=== PATIENT | male | born 1975 | race Caucasian/White ===

== ENCOUNTER 2020-11-04 09:51 | Emergency (ER) | payer BC, OTHER ==
[~2020-11-04 09:51] MED LIST: AMOXICILLIN500 MG PO; BENTYL 20MG TAB20 MG PO; CELEBREX100 MG PO; CIPRO HC OTIC S10 ML EARRT; CIPRODEX OTIC7.5 ML EARRT; CORTISPORIN OTI10 M1 EARRT; IBUPROFEN600 MG PO; IBUPROFEN800 MG PO; MIRALAX17 GM PO; ONDANSETRON ODT4 MG SL; PREDNISONE 20 M20 MG GT; PROAIR HFA8.5 GM INH; PROVENTIL HFA6.7 GM INH; TAMIFLU75 MG PO; TESSALON PERLE100 MG PO; VIBRAMYCIN100 MG PO; ZITHROMAX250 MG PO; ZOFRAN ODT 4 MG4 MG PO; ZOFRAN4 MG PO; ZYRTEC-D TABLE1 EACH PO
[2020-11-04 10:39] LABS: HEMOGLOBIN 15.1 gm/dl (14.0-17.5); RED BLOOD COUNT 4.87 M/UL (4.20-5.50); WHITE BLOOD COUNT 7.7 K/UL (4.5-11.0)
[2020-11-04 11:10] LABS: BUN/CREATININE RATIO 32 (0-10)
[2021-05-05] MEDS ORDERED: FLOMAX 0.4 MG0.4 MG PO (11:14)
[2021-05-05] MEDS ORDERED: ASPIRIN EC81 MG PO (11:14)
== END 2020-11-04 14:09 | disposition home or self-care (01) ==
LOC: ER1 09:51
PROVIDERS: Physician Assistant
DX: J06.9 Acute upper respiratory infection, unspecified (principal); R10.9 Unspecified abdominal pain; R30.0 Dysuria; F17.200 Nicotine dependence, unspecified, uncomplicated; Z20.822 Contact with and (suspected) exposure to COVID-19
CPT/HCPCS: 71045; 80053; 81001; 85025; 99285; U0003

== ENCOUNTER 2020-12-19 14:06 | Emergency (ER) | payer BC, OTHER ==
[2020-12-19 16:45] LABS: HEMOGLOBIN 15.7 gm/dl (14.0-17.5); RED BLOOD COUNT 4.9 M/UL (4.20-5.50)
[2020-12-19 17:03] LABS: BUN/CREATININE RATIO 20 (0-10)
[2021-05-05] MEDS ORDERED: FLOMAX 0.4 MG0.4 MG PO (11:14)
[2021-05-05] MEDS ORDERED: ASPIRIN EC81 MG PO (11:14)
== END 2020-12-19 18:19 | disposition home or self-care (01) ==
LOC: ER1 14:06
PROVIDERS: Emergency Medicine
DX: N20.0 Calculus of kidney (principal); I10 Essential (primary) hypertension; F17.200 Nicotine dependence, unspecified, uncomplicated; Z87.442 Personal history of urinary calculi
CPT/HCPCS: 80053; 81001; 83690; 85025; 96374; 96375; 99284; J2270; J2405; J7030

== ENCOUNTER 2020-12-23 05:07 | Emergency (ER) | payer BC, OTHER ==
[2020-12-23 05:52] LABS: HEMOGLOBIN 15.3 gm/dl (14.0-17.5); RED BLOOD COUNT 4.8 M/UL (4.20-5.50); WHITE BLOOD COUNT 9.7 K/UL (4.5-11.0)
[2020-12-23 06:11] LABS: BUN/CREATININE RATIO 24 (0-10)
[2020-12-23] MEDS ORDERED: OMNICEF 300 MG300 MG PO (09:34)
[2021-05-05] MEDS ORDERED: FLOMAX 0.4 MG0.4 MG PO (11:14)
[2021-05-05] MEDS ORDERED: ASPIRIN EC81 MG PO (11:14)
== END 2020-12-23 09:41 | disposition home or self-care (01) ==
LOC: ER1 05:07
PROVIDERS: Family Medicine
DX: N20.0 Calculus of kidney (principal); N19 Unspecified kidney failure; F17.210 Nicotine dependence, cigarettes, uncomplicated
CPT/HCPCS: 36415; 80053; 81001; 83690; 85025; 96374; 96375; 99284; J1885; J2405

== ENCOUNTER 2021-01-19 03:52 | Emergency (ER) | payer OTHER ==
[~2021-01-19 03:52] MED LIST changes: +OMNICEF 300 MG300 MG PO
[2021-01-19 04:41] LABS: HEMOGLOBIN 15.2 gm/dl (14.0-17.5); RED BLOOD COUNT 4.86 M/UL (4.20-5.50); WHITE BLOOD COUNT 10.6 K/UL (4.5-11.0)
[2021-01-19 05:00] LABS: BUN/CREATININE RATIO 14 (0-10)
[2021-01-19] MEDS ORDERED: VIBRAMYCIN100 MG PO (08:03)
[2021-01-21 21:11] LABS: CHLAMYDIA TRACHOMATIS, NAA Negative (Negative); NEISSERIA GONORRHOEAE, NAA Negative (Negative)
[2021-05-05] MEDS ORDERED: ASPIRIN EC81 MG PO (11:14)
[2021-05-05] MEDS ORDERED: FLOMAX 0.4 MG0.4 MG PO (11:14)
== END 2021-01-19 09:25 | disposition home or self-care (01) ==
LOC: ER1 03:52
PROVIDERS: Emergency Medicine
DX: N45.1 Epididymitis (principal); F17.210 Nicotine dependence, cigarettes, uncomplicated; Z87.442 Personal history of urinary calculi
CPT/HCPCS: 76870; 80053; 80307; 81001; 83690; 85025; 96365; 96375; 99284; J0696; J2270; J2405

== ENCOUNTER 2021-01-22 21:07 | Emergency (ER) | payer OTHER ==
[2021-05-05] MEDS ORDERED: ASPIRIN EC81 MG PO (11:14)
[2021-05-05] MEDS ORDERED: FLOMAX 0.4 MG0.4 MG PO (11:14)
== END 2021-01-22 23:32 | disposition left against medical advice (07) ==
LOC: ER1 21:07
PROVIDERS: Nurse Practitioner
DX: Z53.21 Procedure and treatment not carried out due to patient leaving prior to being seen by health care provider (principal)
CPT/HCPCS: 80307; 81001; 87086

== ENCOUNTER 2021-01-28 13:43 | Emergency (ER) | payer OTHER ==
[2021-01-28 14:31] LABS: HEMOGLOBIN 15.8 gm/dl (14.0-17.5); RED BLOOD COUNT 5.06 M/UL (4.20-5.50); WHITE BLOOD COUNT 10.9 K/UL (4.5-11.0)
[2021-01-28 15:03] LABS: BUN/CREATININE RATIO 16 (0-10)
[2021-01-28] MEDS ORDERED: LACTULOSE20 GM/30 M PO (16:04)
[2021-05-05] MEDS ORDERED: ASPIRIN EC81 MG PO (11:14)
[2021-05-05] MEDS ORDERED: FLOMAX 0.4 MG0.4 MG PO (11:14)
== END 2021-01-28 16:32 | disposition home or self-care (01) ==
LOC: ER1 13:43
PROVIDERS: Family Medicine
DX: N50.811 Right testicular pain (principal); N50.812 Left testicular pain; R10.84 Generalized abdominal pain; F15.10 Other stimulant abuse, uncomplicated; M54.5 Low back pain; F17.210 Nicotine dependence, cigarettes, uncomplicated; Z87.442 Personal history of urinary calculi
CPT/HCPCS: 74019; 80053; 80307; 81001; 83690; 85025; 96374; 99284; J1885

== ENCOUNTER 2021-02-15 23:32 | Emergency (ER) | payer OTHER ==
[~2021-02-15 23:32] MED LIST changes: +LACTULOSE20 GM/30 M PO
[2021-02-16 02:32] LABS: HEMOGLOBIN 14.9 gm/dl (14.0-17.5); RED BLOOD COUNT 4.72 M/UL (4.20-5.50); WHITE BLOOD COUNT 10.5 K/UL (4.5-11.0)
[2021-02-16 02:50] LABS: BUN/CREATININE RATIO 17 (0-10)
[2021-02-16] MEDS ORDERED: DOXYCYCLINE HY100 MG PO (04:05)
[2021-02-16] MEDS ORDERED: COLACE CLEAR50 MG PO (04:05)
[2021-05-05] MEDS ORDERED: ASPIRIN EC81 MG PO (11:14)
[2021-05-05] MEDS ORDERED: FLOMAX 0.4 MG0.4 MG PO (11:14)
== END 2021-02-16 04:25 | disposition home or self-care (01) ==
LOC: ER1 23:32
PROVIDERS: Student in an Organized Health Care Education/Training Program
DX: K59.00 Constipation, unspecified (principal); N45.1 Epididymitis; Z87.442 Personal history of urinary calculi; F17.210 Nicotine dependence, cigarettes, uncomplicated
CPT/HCPCS: 80053; 81001; 85025; 96372; 99283; J0696

== ENCOUNTER 2021-03-18 00:43 | Emergency (ER) | payer OTHER ==
[~2021-03-18 00:43] MED LIST changes: +COLACE CLEAR50 MG PO; +DOXYCYCLINE HY100 MG PO
[2021-03-18 01:53] LABS: HEMOGLOBIN 15.8 gm/dl (14.0-17.5); RED BLOOD COUNT 4.98 M/UL (4.20-5.50); WHITE BLOOD COUNT 9.6 K/UL (4.5-11.0)
[2021-03-18 02:10] LABS: BUN/CREATININE RATIO 14 (0-10)
[2021-05-05] MEDS ORDERED: ASPIRIN EC81 MG PO (11:14)
[2021-05-05] MEDS ORDERED: FLOMAX 0.4 MG0.4 MG PO (11:14)
== END 2021-03-18 02:50 | disposition home or self-care (01) ==
LOC: ER1 00:43
PROVIDERS: Student in an Organized Health Care Education/Training Program
DX: R10.30 Lower abdominal pain, unspecified (principal); F17.200 Nicotine dependence, unspecified, uncomplicated
CPT/HCPCS: 80053; 81001; 83690; 85025; 99284

== ENCOUNTER 2021-04-29 16:27 | Inpatient (IN) | payer OTHER ==
[~2021-04-29] VITALS: Ht 167.6 cm; Wt 68.0 kg
[2021-04-29 17:00] LABS: HEMOGLOBIN 16.1 gm/dl (14.0-17.5); RED BLOOD COUNT 5.13 M/UL (4.20-5.50); WHITE BLOOD COUNT 9.6 K/UL (4.5-11.0)
[2021-04-29 17:22] LABS: BUN/CREATININE RATIO 15 (0-10)
[2021-04-29] MEDS ORDERED: ELAVIL 50 MG TA50 MG PO (21:09)
[2021-04-30 06:14] LABS: HEMOGLOBIN 15.4 gm/dl (14.0-17.5); RED BLOOD COUNT 4.96 M/UL (4.20-5.50); WHITE BLOOD COUNT 9.5 K/UL (4.5-11.0)
[2021-04-30 06:51] LABS: BUN/CREATININE RATIO 16 (0-10)
[2021-05-01 02:35] LABS: HEMOGLOBIN 15.1 gm/dl (14.0-17.5); RED BLOOD COUNT 4.84 M/UL (4.20-5.50); WHITE BLOOD COUNT 8.6 K/UL (4.5-11.0)
[2021-05-01 03:02] LABS: BUN/CREATININE RATIO 16 (0-10)
[2021-05-01 07:11] LABS: HIV SCREEN 4TH GENERATION WRFX Non Reactive (Non Reactive)
[2021-05-01 08:14] LABS: RPR Non Reactive (Non Reactive)
[2021-05-01 10:16] LABS: HBSAG SCREEN Negative (Negative); HEP A AB, IGM Negative (Negative); HEP B CORE AB, IGM Negative (Negative); HEP C VIRUS AB >11.0 (0.0-0.9)
--- NOTE | 2021-05-01 10:34 | NUR ---
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
[2021-05-02 05:44] LABS: BUN/CREATININE RATIO 13 (0-10)
[2021-05-02 05:51] LABS: HEMOGLOBIN 14.4 gm/dl (14.0-17.5); RED BLOOD COUNT 4.59 M/UL (4.20-5.50); WHITE BLOOD COUNT 8.2 K/UL (4.5-11.0)
[2021-05-02 14:14] LABS: ANTI-DSDNA ANTIBODIES 1 IU/mL (0-9)
[2021-05-03 06:47] LABS: HEMOGLOBIN 14.8 gm/dl (14.0-17.5); RED BLOOD COUNT 4.78 M/UL (4.20-5.50); WHITE BLOOD COUNT 8.4 K/UL (4.5-11.0)
[2021-05-03 07:06] LABS: BUN/CREATININE RATIO 10 (0-10)
[2021-05-04 05:36] LABS: HEMOGLOBIN 14.8 gm/dl (14.0-17.5); RED BLOOD COUNT 4.72 M/UL (4.20-5.50); WHITE BLOOD COUNT 9.6 K/UL (4.5-11.0)
[2021-05-04 06:03] LABS: BUN/CREATININE RATIO 15 (0-10)
[2021-05-04 20:09] LABS: ANTIMYELOPEROXIDASE (MPO) ABS <9.0 U/mL (0.0-9.0); ANTIPROTEINASE 3 (PR-3) ABS <3.5 U/mL (0.0-3.5); ATYPICAL PANCA <1:20 titer (Neg:<1:20); CYTOPLASMIC (C-ANCA) <1:20 titer (Neg:<1:20); PERINUCLEAR (P-ANCA) <1:20 titer (Neg:<1:20)
[2021-05-05 03:52] LABS: HEMOGLOBIN 14.1 gm/dl (14.0-17.5); RED BLOOD COUNT 4.59 M/UL (4.20-5.50); WHITE BLOOD COUNT 7.8 K/UL (4.5-11.0)
[2021-05-05 04:12] LABS: BUN/CREATININE RATIO 21 (0-10)
[2021-05-05] MEDS ORDERED: FLOMAX 0.4 MG0.4 MG PO (11:14)
[2021-05-05] MEDS ORDERED: ASPIRIN EC81 MG PO (11:14)
== END 2021-05-05 17:21 | disposition swing bed (61) | DRG 287 ==
LOC: ER1 16:27 → CDU 17:49 → MED SURG 4 17:49
PROVIDERS: Emergency Medicine; Internal Medicine Cardiovascular Disease; Physician Assistant; Physician Assistant Medical; ADMIT Internal Medicine
PROC: 4A023N7 Measurement of Cardiac Sampling and Pressure, Left Heart, Percutaneous Approach (ICD-10-PCS; principal; 2021-05-01)
PROC: B211YZZ Fluoroscopy of Multiple Coronary Arteries using Other Contrast (ICD-10-PCS; 2021-05-01)
PROC: B24BZZ4 Ultrasonography of Heart with Aorta, Transesophageal (ICD-10-PCS; 2021-05-01)
PROC: 02HV33Z Insertion of Infusion Device into Superior Vena Cava, Percutaneous Approach (ICD-10-PCS; 2021-05-05)
PROC: B548ZZA Ultrasonography of Superior Vena Cava, Guidance (ICD-10-PCS; 2021-05-05)
DX: I05.9 Rheumatic mitral valve disease, unspecified (principal); I07.1 Rheumatic tricuspid insufficiency; N13.30 Unspecified hydronephrosis; Z20.822 Contact with and (suspected) exposure to COVID-19; N20.9 Urinary calculus, unspecified; B19.20 Unspecified viral hepatitis C without hepatic coma; R31.9 Hematuria, unspecified; Z96.642 Presence of left artificial hip joint; F17.210 Nicotine dependence, cigarettes, uncomplicated; G47.00 Insomnia, unspecified; F15.10 Other stimulant abuse, uncomplicated; F11.10 Opioid abuse, uncomplicated; Z83.3 Family history of diabetes mellitus; Z82.3 Family history of stroke; Z82.49 Family history of ischemic heart disease and other diseases of the circulatory system
CPT/HCPCS: ECHO; 36415; 70551; 71045; 71250; 78452; 80048; 80053; 80061; 80074; 80202; 80307; 81001; 82550; 82553; 83036; 83520; 83735; 83874; 84443; 84484; 85025; 85027; 85379; 85652; 86140; 86225; 86256; 86592; 87040; 87086; 87389; 93005; 93017; 93306; 93312; 93320; 99152; 99153; 99285; A9502; C1751; C1769; C1894; G0378; J0692; J1644; J1885; J2250; J2543; J3010; J3370; J7070; Q9967; U0002

== ENCOUNTER 2021-06-09 09:12 | Emergency (ER) | payer OTHER ==
[~2021-06-09 09:12] MED LIST changes: +ASPIRIN EC81 MG PO; +ELAVIL 50 MG TA50 MG PO; +FLOMAX 0.4 MG0.4 MG PO
[2021-06-09] MEDS ORDERED: MEDROL DOSEPAK 24 MG PO (10:38)
== END 2021-06-09 11:00 | disposition home or self-care (01) ==
LOC: ER1 09:12
DX: M54.42 Lumbago with sciatica, left side (principal); F17.290 Nicotine dependence, other tobacco product, uncomplicated
CPT/HCPCS: 99283; J1100; J1885

== ENCOUNTER 2021-09-29 07:46 | Emergency (ER) | payer OTHER ==
[~2021-09-29 07:46] MED LIST changes: +MEDROL DOSEPAK 24 MG PO
[2021-09-29 08:28] LABS: HEMOGLOBIN 15.8 gm/dl (14.0-17.5); RED BLOOD COUNT 4.94 M/UL (4.20-5.50); WHITE BLOOD COUNT 10.2 K/UL (4.5-11.0)
[2021-09-29 08:51] LABS: BUN/CREATININE RATIO 26 (0-10)
== END 2021-09-29 11:32 | disposition home or self-care (01) ==
LOC: ER1 07:46
PROVIDERS: Physician Assistant
DX: R07.9 Chest pain, unspecified (principal); F17.200 Nicotine dependence, unspecified, uncomplicated; Z20.822 Contact with and (suspected) exposure to COVID-19
CPT/HCPCS: 0240U; 71045; 80053; 82550; 82553; 83874; 84484; 85025; 85379; 93005; 99285

== ENCOUNTER 2021-11-10 20:59 | Emergency (ER) | payer OTHER ==
[2021-11-10 23:07] LABS: HEMOGLOBIN 15.6 gm/dl (14.0-17.5); RED BLOOD COUNT 4.93 M/UL (4.20-5.50); WHITE BLOOD COUNT 10.6 K/UL (4.5-11.0)
[2021-11-10 23:29] LABS: BUN/CREATININE RATIO 25 (0-10)
[2021-11-11] MEDS ORDERED: IBUPROFEN800 MG PO (03:18)
[2021-11-11] MEDS ORDERED: BACTRIM DS TAB1 EACH PO (03:18)
[2021-11-11] MEDS ORDERED: CEPHALEXIN500 M1 PO (03:18)
== END 2021-11-11 03:28 | disposition home or self-care (01) ==
LOC: ER1 20:59
PROVIDERS: Physician Assistant
DX: R07.89 Other chest pain (principal); L02.211 Cutaneous abscess of abdominal wall; F17.210 Nicotine dependence, cigarettes, uncomplicated; Z20.822 Contact with and (suspected) exposure to COVID-19
CPT/HCPCS: 0240U; 10060; 71045; 80053; 81001; 82550; 82553; 83605; 83874; 84484; 85025; 87040; 87070; 87077; 87086; 87186; 87205; 93005; 99285

== ENCOUNTER 2021-12-03 22:03 | Emergency (ER) | payer OTHER ==
[~2021-12-03 22:03] MED LIST changes: +BACTRIM DS TAB1 EACH PO; +CEPHALEXIN500 M1 PO
[2021-12-03] MEDS ORDERED: TRIAMCINOLONE A15 GM TP (22:22)
== END 2021-12-03 22:40 | disposition home or self-care (01) ==
LOC: ER1 22:03
DX: T78.40XA Allergy, unspecified, initial encounter (principal)
CPT/HCPCS: 99282

== ENCOUNTER 2021-12-12 01:17 | Emergency (ER) | payer BC, OTHER ==
[~2021-12-12 01:17] MED LIST changes: +TRIAMCINOLONE A15 GM TP
== END 2021-12-12 01:31 | disposition home or self-care (01) ==
LOC: ER1 01:17
DX: R05.9 Cough, unspecified (principal); R52 Pain, unspecified; Z20.822 Contact with and (suspected) exposure to COVID-19; F17.210 Nicotine dependence, cigarettes, uncomplicated
CPT/HCPCS: 99283

== ENCOUNTER 2021-12-19 05:01 | Emergency (ER) | payer BC, OTHER ==
[2021-12-19 06:07] LABS: HEMOGLOBIN 15.1 gm/dl (14.0-17.5); RED BLOOD COUNT 4.9 M/UL (4.20-5.50); WHITE BLOOD COUNT 10.5 K/UL (4.5-11.0)
[2021-12-19 06:32] LABS: BUN/CREATININE RATIO 22 (0-10)
== END 2021-12-19 09:40 | disposition home or self-care (01) ==
LOC: ER1 05:01
PROVIDERS: Physician Assistant
DX: R07.89 Other chest pain (principal); F17.210 Nicotine dependence, cigarettes, uncomplicated; Z79.899 Other long term (current) drug therapy
CPT/HCPCS: 80053; 82550; 82553; 83874; 84484; 85025; 93005; 96374; 96375; 99285; J2270; J2405; Q9967

== ENCOUNTER 2021-12-22 09:02 | Observation (INO) | payer BC, OTHER ==
[~2021-12-22] VITALS: Ht 167.6 cm; Wt 72.4 kg
[2021-12-22 09:41] LABS: HEMOGLOBIN 16.8 gm/dl (14.0-17.5); RED BLOOD COUNT 5.42 M/UL (4.20-5.50); WHITE BLOOD COUNT 11.9 K/UL (4.5-11.0)
[2021-12-22] MEDS ORDERED: ADVIL200 MG PO (11:45)
[2021-12-23 02:54] LABS: WHITE BLOOD COUNT 9.2 K/UL (4.5-11.0)
[2021-12-23 02:55] LABS: HEMOGLOBIN 13.6 gm/dl (14.0-17.5); RED BLOOD COUNT 4.45 M/UL (4.20-5.50)
[2021-12-23 03:30] LABS: BUN/CREATININE RATIO 20 (0-10)
[2021-12-24 03:38] LABS: BUN/CREATININE RATIO 12 (0-10)
== END 2021-12-24 14:22 | disposition home or self-care (01) ==
LOC: ER1 09:02 → CDU 11:16 → PROG CARE 11:16
PROVIDERS: Internal Medicine; Physician Assistant; ADMIT Internal Medicine
DX: M62.82 Rhabdomyolysis (principal); I34.0 Nonrheumatic mitral (valve) insufficiency; N17.9 Acute kidney failure, unspecified; K76.0 Fatty (change of) liver, not elsewhere classified; B19.20 Unspecified viral hepatitis C without hepatic coma; I25.10 Atherosclerotic heart disease of native coronary artery without angina pectoris; N20.0 Calculus of kidney; R50.9 Fever, unspecified; F15.90 Other stimulant use, unspecified, uncomplicated; F11.11 Opioid abuse, in remission; R91.1 Solitary pulmonary nodule; G47.00 Insomnia, unspecified; R56.9 Unspecified convulsions; R05.9 Cough, unspecified; R00.0 Tachycardia, unspecified; Z98.61 Coronary angioplasty status; Z72.0 Tobacco use; Z96.642 Presence of left artificial hip joint; Z20.822 Contact with and (suspected) exposure to COVID-19
CPT/HCPCS: ECHO; 36415; 80048; 80053; 80307; 81001; 82550; 82553; 84484; 85025; 93005; 93306; 96372; 96374; 96375; 99285; C9113; G0378; J1644; J2405; J7030; U0002

== ENCOUNTER 2022-01-09 13:35 | Emergency (ER) | payer BC, OTHER ==
[~2022-01-09 13:35] MED LIST changes: +ADVIL200 MG PO
[2022-01-09] MEDS ORDERED: CEPHALEXIN500 M1 PO (15:37)
== END 2022-01-09 15:51 | disposition home or self-care (01) ==
LOC: ER1 13:35
DX: S61.210A Laceration without foreign body of right index finger without damage to nail, initial encounter (principal); Z23 Encounter for immunization; W26.0XXA Contact with knife, initial encounter; Y92.009 Unspecified place in unspecified non-institutional (private) residence as the place of occurrence of the external cause
CPT/HCPCS: 73130; 90471; 90715; 99283

== ENCOUNTER 2022-02-07 13:24 | Emergency (ER) | payer BC ==
[~2022-02-07 13:24] MED LIST changes: +IBU600 MG PO
[2022-02-07 14:51] LABS: HEMOGLOBIN 15.5 gm/dl (14.0-17.5); RED BLOOD COUNT 4.9 M/UL (4.20-5.50); WHITE BLOOD COUNT 14.2 K/UL (4.5-11.0)
[2022-02-07 15:26] LABS: BUN/CREATININE RATIO 24 (0-10)
[2022-02-07] MEDS ORDERED: FLOMAX 0.4 MG0.4 MG PO (18:53)
[2022-02-07] MEDS ORDERED: TORADOL 10 MG T10 MG PO (18:53)
[2022-02-07] MEDS ORDERED: ONDANSETRON ODT4 MG SL (18:53)
[2022-02-07] MEDS ORDERED: CEFDINIR300 MG PO (18:53)
[2022-02-07] MEDS ORDERED: ZITHROMAX250 MG PO (18:53)
== END 2022-02-07 19:30 | disposition home or self-care (01) ==
LOC: ER1 13:24
PROVIDERS: Physician Assistant
DX: N20.2 Calculus of kidney with calculus of ureter (principal); F17.200 Nicotine dependence, unspecified, uncomplicated; J18.9 Pneumonia, unspecified organism; Z87.442 Personal history of urinary calculi; Z20.822 Contact with and (suspected) exposure to COVID-19
CPT/HCPCS: 0240U; 71045; 80053; 81001; 82550; 82553; 83690; 83880; 84484; 85025; 85379; 87086; 93005; 96374; 96375; 99285; J1885; J2270; J2405

== ENCOUNTER 2022-02-08 17:36 | Emergency (ER) | payer BC ==
[~2022-02-08 17:36] MED LIST changes: +CEFDINIR300 MG PO; +TORADOL 10 MG T10 MG PO
[2022-02-08 18:03] LABS: HEMOGLOBIN 15.2 gm/dl (14.0-17.5); RED BLOOD COUNT 4.85 M/UL (4.20-5.50)
[2022-02-08 18:09] LABS: WHITE BLOOD COUNT 9.3 K/UL (4.5-11.0)
[2022-02-08 18:31] LABS: BUN/CREATININE RATIO 28 (0-10)
== END 2022-02-08 18:09 | disposition left against medical advice (07) ==
LOC: ER1 17:36
PROVIDERS: Family Medicine
DX: R07.9 Chest pain, unspecified (principal); F17.210 Nicotine dependence, cigarettes, uncomplicated
CPT/HCPCS: 80053; 82550; 82553; 84484; 85025; 93005; 99281

== ENCOUNTER 2022-02-22 14:22 | Emergency (ER) | payer BC ==
[2022-02-22 16:17] LABS: RED BLOOD COUNT 5.09 M/UL (4.20-5.50); WHITE BLOOD COUNT 12.5 K/UL (4.5-11.0)
[2022-02-22 16:35] LABS: BUN/CREATININE RATIO 20 (0-10)
[2022-02-25 06:11] LABS: CHLAMYDIA TRACHOMATIS, NAA Negative (Negative); NEISSERIA GONORRHOEAE, NAA Negative (Negative)
== END 2022-02-22 21:40 | disposition home or self-care (01) ==
LOC: ER1 14:22
PROVIDERS: Physician Assistant
DX: N45.1 Epididymitis (principal); F15.10 Other stimulant abuse, uncomplicated; F17.210 Nicotine dependence, cigarettes, uncomplicated
CPT/HCPCS: 76870; 80053; 81001; 83690; 85025; 96374; 96375; 99284; J0696; J1885; Q9967

== ENCOUNTER 2022-03-22 11:57 | Emergency (ER) | payer OTHER ==
[2022-03-22 12:50] LABS: HEMOGLOBIN 15.4 gm/dl (14.0-17.5); RED BLOOD COUNT 4.96 M/UL (4.20-5.50)
[2022-03-22 13:13] LABS: BUN/CREATININE RATIO 15 (0-10)
== END 2022-03-22 15:00 | disposition home or self-care (01) ==
LOC: ER1 11:57
PROVIDERS: Physician Assistant
DX: R07.9 Chest pain, unspecified (principal); R06.02 Shortness of breath; Z20.822 Contact with and (suspected) exposure to COVID-19; R05.9 Cough, unspecified; F17.210 Nicotine dependence, cigarettes, uncomplicated
CPT/HCPCS: 0240U; 71045; 80053; 82550; 82553; 84484; 85025; 85379; 93005; 99285

== ENCOUNTER 2022-04-05 13:55 | Emergency (ER) | payer OTHER ==
[2022-04-05 14:21] LABS: HEMOGLOBIN 15.5 gm/dl (14.0-17.5); RED BLOOD COUNT 4.98 M/UL (4.20-5.50); WHITE BLOOD COUNT 10.5 K/UL (4.5-11.0)
[2022-04-05 14:34] LABS: BUN/CREATININE RATIO 14 (0-10)
== END 2022-04-05 17:30 | disposition home or self-care (01) ==
LOC: ER1 13:55
PROVIDERS: Emergency Medicine
DX: T40.2X1A Poisoning by other opioids, accidental (unintentional), initial encounter (principal); F15.90 Other stimulant use, unspecified, uncomplicated
CPT/HCPCS: 70450; 80053; 80307; 81001; 83690; 85025; 96374; 99284; J2405; Q9967